=== PATIENT | female | born 1995 | race Caucasian/White ===

== ENCOUNTER → 2016-10-18 | Outpatient (REF) | payer OTHER | LOC: M LAB REF 10:59 | PROVIDERS: ATTEND Advanced Practice Midwife | DX: Z12.4 Encounter for screening for malignant neoplasm of cervix (principal) ==

== ENCOUNTER → 2017-10-19 | Outpatient (CLI) | payer OTHER ==
[2017-10-19 14:11] LABS: BASO % 0.2 % (0.0-1.0); EOS % 0.5 % (0.0-3.0); HEMOGLOBIN 12.9 g/dl (12.0-15.5); LYMPH # 2.1 10^3/uL (1.5-6.5); LYMPH % 36.1 % (24.0-44.0); MEAN CORPUSCULAR HEMOGLOBIN 29.4 pg (27.0-33.0); MEAN CORPUSCULAR HGB CONC 33.1 g/dl (32.0-36.5); MEAN CORPUSCULAR VOLUME 88.8 fl (80.0-96.0); MONO # 0.5 10^3/uL (0.0-0.8); MONO % 8.2 % (0.0-5.0); NEUTROPHILS # 3.1 10^3/uL (1.8-7.7); PLATELET COUNT, AUTOMATED 236 10^3/uL (150-450); RED BLOOD COUNT 4.39 10^6/uL (4.00-5.40); WHITE BLOOD COUNT 5.7 10^3/uL (4.0-10.0)
[2017-10-19 14:33] LABS: D-DIMER QUANT < 270.0 ng/ml (<500)
[2017-10-19 14:58] LABS: ALKALINE PHOSPHATASE 87 U/L (45-117); ALT/SGPT 20 U/L (12-78); AST/SGOT 15 U/L (7-37); BILIRUBIN,TOTAL 0.4 MG/DL (0.2-1.0); BLOOD UREA NITROGEN 11 MG/DL (7-18); CALCIUM LEVEL 9.1 MG/DL (8.5-10.1); CARBON DIOXIDE LEVEL 27 MEQ/L (21-32); CHLORIDE LEVEL 110 MEQ/L (98-107); CK-MB VALUE MASS 1.1 NG/ML (<3.6); CPK CREATINE PHOSPHOKINASE 92 U/L (26-192); CREATININE FOR GFR 0.69 MG/DL (0.55-1.30); GLUCOSE, FASTING 73 MG/DL (70-100); MB/CK RELATIVE INDEX 1.19 (< OR =4); POTASSIUM SERUM 4.2 MEQ/L (3.5-5.1); SODIUM LEVEL 142 MEQ/L (136-145); TROPONIN I < 0.02 NG/ML (< 0.10)
[2017-10-19 20:59] LABS: ALBUMIN/GLOBULIN RATIO 1.33 (1.00-1.93); ANION GAP 5 MEQ/L (8-16)
== END ==
LOC: M WUC 12:56
DX: R07.1 Chest pain on breathing (principal)
CPT/HCPCS: 82550

== ENCOUNTER → 2017-12-28 | Outpatient (REF) | payer OTHER | LOC: M LAB REF 17:07 | DX: Z01.419 Encounter for gynecological examination (general) (routine) without abnormal findings (principal) ==

== ENCOUNTER → 2018-05-17 | Outpatient (CLI) | payer OTHER ==
[2018-05-17 17:58] LABS: HCG, SERUM QUANTITATIVE 16248 MIU/ML
== END ==
LOC: M SMT 14:37
DX: O20.0 Threatened abortion (principal); Z3A.00 Weeks of gestation of pregnancy not specified
CPT/HCPCS: 84702

== ENCOUNTER → 2018-05-19 | Outpatient (CLI) | payer OTHER ==
[2018-05-19 16:26] LABS: HCG, SERUM QUANTITATIVE 13322 MIU/ML
== END ==
LOC: M LAB 15:06
DX: O20.0 Threatened abortion (principal); Z3A.00 Weeks of gestation of pregnancy not specified
CPT/HCPCS: 84702

== ENCOUNTER → 2018-06-05 | Outpatient (CLI) | payer OTHER ==
[2018-06-05 13:13] LABS: HCG, SERUM QUANTITATIVE 281 MIU/ML
== END ==
LOC: M LAB 12:19
DX: O02.1 Missed abortion (principal)
CPT/HCPCS: 84702

== ENCOUNTER → 2018-06-15 | Outpatient (CLI) | payer OTHER ==
[2018-06-15 17:21] LABS: HCG, SERUM QUANTITATIVE 92 MIU/ML
== END ==
LOC: M LAB 16:38
DX: O02.1 Missed abortion (principal)
CPT/HCPCS: 84702

== ENCOUNTER → 2018-07-04 | Outpatient (CLI) | payer OTHER ==
[2018-07-04 18:21] LABS: HCG, SERUM QUANTITATIVE 17 MIU/ML
== END ==
LOC: M LAB 17:26
DX: O02.1 Missed abortion (principal)
CPT/HCPCS: 84702

== ENCOUNTER 2018-11-13 06:05 | Day surgery (SDC) | payer OTHER ==
[~2018-11-13] VITALS: Ht 170.2 cm; Wt 64.9 kg
[~2018-11-13 06:05] MED LIST: CLIN1SOL TOP; FINA15GE TOP; FLON1SPR; NAPR-885 PO; PRENTAB55 PO; VITA500046 PO; VITATAB11 PO
[2018-11-13 06:47] LABS: URINE PREG TEST NEGATIVE (NEGATIVE)
[2018-11-13] MEDS ORDERED: LR 1,000 ML IV SCH (07:00)
[2018-11-13] MEDS ORDERED: dexameTHASONE 4 MG/ML 1ML VIAL (J1100) IV ONE (07:00)
[2018-11-13] MEDS ORDERED: LIDOCAINE 1% MDV 20ML VIAL SC PRN (07:00)
[2018-11-13] MEDS ORDERED: AMPICILLIN SOD/SULBACTAM SOD 3 GM in D5W MINI-BAG PLUS 100 ML IV ONE (07:00)
[2018-11-13] MEDS ORDERED: LIDOCAINE 2% W/ EPINEPHRINE 1.7 ML DENTAL INJ As Ordered ONE ×2 (07:07→08:21)
[2018-11-13] MEDS ORDERED: SCOPOLAMINE 1MG TRANSDERMAL PATCH As Ordered ONE (07:28)
[2018-11-13] MEDS ORDERED: SCOPOLAMINE 1MG TRANSDERMAL PATCH TOP ONE (07:45)
[2018-11-13] MEDS ORDERED: LIDOCAINE 2% INJ 100 MG/5 ML SDV (FOR ANES.) As Ordered ONE (07:57)
[2018-11-13] MEDS ORDERED: PROPOFOL 200 MG/20 ML VIAL As Ordered ONE (07:57)
[2018-11-13] MEDS ORDERED: MIDAZOLAM INJ 2 MG/2 ML VIAL (J2250) As Ordered ONE (07:57)
[2018-11-13] MEDS ORDERED: ROCURONIUM BROMIDE 50 MG/5 ML VIAL As Ordered ONE (07:57)
[2018-11-13] MEDS ORDERED: fentaNYL 250 MCG/5 ML INJECTION (J3010) As Ordered ONE (07:57)
[2018-11-13] MEDS ORDERED: ONDANSETRON 4MG/2ML VIAL (J2405) As Ordered ONE (07:57)
[2018-11-13] MEDS ORDERED: KETOROLAC 60 MG/2 ML VIAL (J1885) As Ordered ONE (08:03)
[2018-11-13] MEDS ORDERED: SUGAMMADEX SODIUM 500 MG/5 ML VIAL (BRIDION) As Ordered ONE (08:03)
[2018-11-13] MEDS ORDERED: PHENYLephrine HCL 500 MCG/5 ML (100MCG/ML) SYRINGE (J2370) As Ordered ONE (08:08)
[2018-11-13] MEDS ORDERED: fentaNYL 100 MCG/2 ML INJECTION (J3010) IV PRN (09:15)
[2018-11-13] MEDS ORDERED: NORCO, ANEXSIA 5/325MG TABLET (HYDROcodone/ACETAMINOPHEN) PO PRN (09:15)
[2018-11-13] MEDS ORDERED: NORCO, ANEXSIA 5/325MG TABLET (HYDROcodone/ACETAMINOPHEN) As Ordered ONE (10:43)
[2018-11-13 11:50] VITALS: BP 116/67
--- NOTE | 2018-11-14 10:34 | RO ---
DATE OF PROCEDURE: 11/13/2018 PREOPERATIVE DIAGNOSES: 1. History of failed office sedation. 2. Symptomatic and malposition impacted teeth number 16, 17 and 32. POSTOPERATIVE DIAGNOSES: Status post: 1. History of failed office sedation. 2. Symptomatic and malposition impacted teeth number 16, 17 and 32. PROCEDURE PERFORMED: Surgical extraction of teeth number 16, 17 and 32. SURGEON: Alejandro Hernandez DMD, MD ANESTHESIA: General endotracheal anesthesia via nasal ray. SPECIMEN: Teeth for gross only. INDICATIONS FOR SURGERY: Alice is a pleasant 23-year-old female who has a history of failed sedation in my office for extraction of her wisdom teeth. We discussed having the procedure done in an operating room setting under general anesthesia. All the risks, benefits and alternatives were explained to the patient. Complete history and physical and informed consent were reviewed and performed and are signed and are in the patient's chart. DESCRIPTION OF PROCEDURE: The patient presented to preop holding area. Any last minute questions were addressed. At that point, the history and physical and the consent were updated. She was given preoperative antibiotics and steroids in the IV access. At this point, the patient was taken back to the operating room. She was laid supine on the operating room table. Ulnar nerve protectors were placed. Noninvasive cardiac monitors were applied. At that point, she was induced and intubated with a nasal ray which was secured to the patient's forehead. She was then prepped and draped in the usual sterile fashion. Time-out procedure was performed to identify the patient, the procedure, and any other precautions. A moist throat pack was inserted in the patient's oropharynx followed by the administration of 2% lidocaine with 1:100,000 epinephrine for local infiltration and blocks. At this point, a full-thickness flap with a hockey stick extension was elevated in site #32 extending into the sulcus of tooth #31. The flap was reflected to expose the buccal and distal cortex. Surgitome was then used to remove buccal bone and a small amount of distal bone all the way down to the furcation of the tooth. The crown was sectioned in several segments and removed, then the roots were sectioned and delivered. Socket was curetted and irrigated. Inferior alveolar nerve was not noted and the lingual cortex was intact. Flap was then closed with #3-0 Chromic sutures. Attention was then given to tooth site #17 where a full-thickness flap was released with a hockey stick extension extending into the sulcus of tooth #18. Flap was fully reflected to expose the buccal cortex as well as a small amount of the distal cortex. Surgitome was used to remove distal and buccal bone in a trough fashion all the way down to the furcation of the tooth. The crown was then sectioned. Then the roots were also sectioned and delivered. At this point, the socket was curetted and irrigated. The alveolar nerve was not noted and lingual cortex was intact and the flap was closed with #3-0 Chromic sutures. Attention was then given to tooth #16 area where a full-thickness flap over the tuberosity extending into the sulcus of tooth #15. Flap was reflected fully. A small amount of buccal and distal bone were removed. The tooth was then luxated and delivered with ease. Socket was curetted and irrigated. No sinus exposure was noted and flap was closed with #3-0 Chromic sutures. At this point, the oral cavity was irrigated and suctioned, the throat pack was removed. The patient was awakened from general anesthesia and taken back to the recovery with no issues under my care and the anesthesiologist care. COMPLICATIONS: None to mention at time of surgery. ESTIMATED BLOOD LOSS: 20 mL. DRAINS: There were no drains placed.
== END 2018-11-13 11:50 | disposition home or self-care (01) ==
LOC: M SDC 06:05
PROVIDERS: ATTEND Dentist
DX: K01.1 Impacted teeth (principal); M26.30 Unspecified anomaly of tooth position of fully erupted tooth or teeth; Z79.899 Other long term (current) drug therapy
CPT/HCPCS: 41899; 84703; 88300; J1100; J1885; J2250; J2370; J2405; J3010

== ENCOUNTER → 2019-01-06 | Outpatient (REF) | payer OTHER | LOC: M LAB REF 12:54 | PROVIDERS: ATTEND Advanced Practice Midwife | DX: Z12.4 Encounter for screening for malignant neoplasm of cervix (principal) ==

== ENCOUNTER → 2019-03-27 | Outpatient (CLI) | payer OTHER | LOC: M LAB 09:48 | PROVIDERS: ATTEND Advanced Practice Midwife | DX: O02.1 Missed abortion (principal) ==

== ENCOUNTER → 2019-11-11 | Outpatient (REF) | payer OTHER | LOC: M PLALAB 09:08 | PROVIDERS: ATTEND Advanced Practice Midwife | DX: Z32.01 Encounter for pregnancy test, result positive (principal) ==

== ENCOUNTER → 2019-11-13 | Outpatient (REF) | payer OTHER | LOC: M PLALAB 09:02 | PROVIDERS: ATTEND Advanced Practice Midwife | DX: Z32.01 Encounter for pregnancy test, result positive (principal) ==

== ENCOUNTER → 2019-11-17 | Outpatient (REF) | payer OTHER ==
[2019-11-17 13:30] LABS: HEMATOCRIT 37.3 % (36.0-47.0); HEMOGLOBIN 12.4 g/dl (12.0-15.5); MEAN CORPUSCULAR HEMOGLOBIN 29.8 pg (27.0-33.0); MEAN CORPUSCULAR HGB CONC 33.2 g/dl (32.0-36.5); MEAN CORPUSCULAR VOLUME 89.7 fl (80.0-96.0); PLATELET COUNT, AUTOMATED 235 10^3/uL (150-450); RED BLOOD COUNT 4.16 10^6/uL (4.00-5.40); WHITE BLOOD COUNT 7.6 10^3/uL (4.0-10.0)
[2019-11-17 14:27] LABS: HEPATITIS B SURFACE ANTIGEN NEGATIVE (NEGATIVE); HEPATITIS C VIRUS ABY INDEX 0.1 INDEX (<0.8); HIV 1&2 SCREEN CENTAUR NEGATIVE (NEGATIVE); RUBELLA IgG QUALITATIVE IMMUNE (IMMUNE)
[2019-11-17 15:07] LABS: CHLAMYDIA DNA AMPLIFICATION NEGATIVE (NEGATIVE); GC DNA AMPLIFICATION NEGATIVE (NEGATIVE)
== END ==
LOC: M PLALAB 11:06
PROVIDERS: ATTEND Advanced Practice Midwife
DX: Z34.81 Encounter for supervision of other normal pregnancy, first trimester (principal)

== ENCOUNTER → 2020-02-19 | Outpatient (CLI) | payer OTHER ==
--- NOTE | 2020-04-09 15:41 | REP ---
OBSTETRIC SONOGRAPHY HISTORY: Supervision of for anatomy. Estimated date of delivery (SIMONA) 07/08/2020. This report was delayed due to a malware attack on this facility. OBSTETRIC SONOGRAPHIC FINDINGS: Scanning through the gravid uterus demonstrates a single living intrauterine gestation in a transverse lie. Placenta is anterior grade 0 without evidence of previa or abruption. Amniotic fluid is subjectively normal. heart rate is recorded at 140 beats per minute. Closed cervical length is 3.9 cm measured transabdominally. There is an echogenic focus in the left ventricle likely chordae tendineae. Facial profile is seen, but nose and lips are not visualized due to position. The following additional anatomic structures are identified and felt to be unremarkable: Intracranial anatomy, spine, left- sided stomach, kidneys and urinary bladder, four chamber heart with left ventricular outflow tract view, three-vessel cord, abdominal wall cord insertion, upper and lower extremities. BIOMETRY CHART BPD 47 mm 20 weeks 4 days Head Circumference 176 mm 20 weeks 1 day Abdominal Circumference 151 mm 20 weeks 3 days Femur Length 31 mm 20 weeks 0 days Humeral Length 30 mm 20 weeks 0 days Cerebellar Diameter 19 mm 20 weeks 1 day Estimated Weight 336 grams 55th Percentile IMPRESSION: Single living intrauterine gestation at 20 weeks 2 days by todays composite criteria. nose and lips and right ventricular outflow tract views less than optimally achieved. Transverse lie. MTDD
== END ==
LOC: M WHC 09:57
PROVIDERS: ATTEND Advanced Practice Midwife
DX: Z34.82 Encounter for supervision of other normal pregnancy, second trimester (principal)

== ENCOUNTER → 2020-03-18 | Outpatient (CLI) | payer OTHER ==
--- NOTE | 2020-03-30 16:54 | REP ---
OBSTETRIC SONOGRAPHY HISTORY: Follow-up anatomy. nose and lips and right ventricular outflow tract. FINDINGS: Scanning through the gravid uterus demonstrates a viable single intrauterine gestation in a cephalic lie. The placenta is anterior grade 1 without evidence of previa or abruption. Amniotic fluid is subjectively normal. Closed cervical length measured transabdominally is 3.4 cm. heart rate 143 beats per minute. right ventricular cardiac outflow tract view is achieved today and is felt to be unremarkable. The following anatomic structures are also identified today and felt to be unremarkable: Left-sided stomach, kidneys and bladder, face and lips, abdominal wall cord insertion, three-vessel cord. BIOMETRY CHART: BPD 59.9 mm 24 weeks 4 days Head Circumference 218 mm 24 weeks 0 day Abdominal Circumference 197 mm 24 weeks 3 days Femur Length 43 mm 24 weeks 0 days Humeral Length 39 mm 23 weeks 6 days Estimated Weight 668 g 49th percentile IMPRESSION: Viable single intrauterine gestation at 24 weeks 2 days by todays criteria. Estimated date of delivery (SIMONA) by todays sonographic criteria 07/06/2020. MTDD
== END ==
LOC: M WHC 13:16
PROVIDERS: ATTEND Advanced Practice Midwife
DX: Z34.82 Encounter for supervision of other normal pregnancy, second trimester (principal)

== ENCOUNTER → 2020-04-06 | Outpatient (CLI) | payer OTHER ==
[2020-04-06 13:34] LABS: HEMATOCRIT 34.1 % (36.0-47.0); HEMOGLOBIN 11.2 g/dl (12.0-15.5); MEAN CORPUSCULAR HGB CONC 32.8 g/dl (32.0-36.5); MEAN CORPUSCULAR VOLUME 94.5 fl (80.0-96.0); PLATELET COUNT, AUTOMATED 213 10^3/uL (150-450); RED BLOOD COUNT 3.61 10^6/uL (4.00-5.40); WHITE BLOOD COUNT 9.5 10^3/uL (4.0-10.0)
== END ==
LOC: M PLALAB 09:17
PROVIDERS: ATTEND Advanced Practice Midwife
DX: Z34.82 Encounter for supervision of other normal pregnancy, second trimester (principal); Z3A.00 Weeks of gestation of pregnancy not specified

== ENCOUNTER → 2020-05-10 | Outpatient (CLI) | payer OTHER ==
--- NOTE | 2020-05-10 12:55 | REP ---
INDICATION: GROWTH/DATING COMPARISON: 03/18/2020 TECHNIQUE: Transabdominal obstetrical ultrasound with color Doppler evaluation. FINDINGS: Examination demonstrates a single live intrauterine in cephalic presentation. motion is identified by technologist. Placenta is noted anterior and grade 2 without evidence for placenta previa or abruption. Amniotic fluid volume is normal. Cervix measures 4.4 cm in length and appears closed. No evidence for nuchal cord. Gestational age by LMP 31 weeks 4 days with SIMONA 07/08/2020. Gestational age by current measurements 31 weeks 3 days with SIMONA 07/09/2020. FHR equals 136 beats per minute. BPD: 7.8 cm 31 weeks 3 days HC: 30.0 cm 33 weeks 1 day AC: 28.9 cm 32 weeks 6 days FL: 5.8 cm 30 weeks 3 days HL: 5.1 cm 29 weeks 4 days HC/AC: 1.04 Estimated weight 1898 grams (55thpercentile). Amniotic fluid index: 11.3 cm (8.7-24.0) IMPRESSION: Single live advanced gestation in cephalic presentation demonstrating appropriate estimated weight and growth. <Electronically signed by Rd Villar > 05/10/20 1344
== END ==
LOC: M WHC 09:55
PROVIDERS: ATTEND Obstetrics & Gynecology
DX: Z34.03 Encounter for supervision of normal first pregnancy, third trimester (principal); Z3A.31 31 weeks gestation of pregnancy

== ENCOUNTER → 2020-06-14 | Outpatient (REF) | payer OTHER | LOC: M SFHCWAGY 13:16 | PROVIDERS: ATTEND Advanced Practice Midwife | DX: Z34.03 Encounter for supervision of normal first pregnancy, third trimester (principal); Z3A.00 Weeks of gestation of pregnancy not specified ==

== ENCOUNTER 2020-07-03 04:12 | Inpatient (IN) | payer OTHER ==
[~2020-07-03] VITALS: Ht 168.9 cm; Wt 71.0 kg
[2020-07-03 04:29] VITALS: BP 105/57
[2020-07-03 05:29] VITALS: BP 122/67
[2020-07-03] MEDS ORDERED: ONDANSETRON 4MG/2ML VIAL As Ordered ONE (05:32)
[2020-07-03 05:34] LABS: HEMATOCRIT 38.3 % (36.0-47.0); HEMOGLOBIN 12.9 g/dl (12.0-15.5); MEAN CORPUSCULAR HGB CONC 33.7 g/dl (32.0-36.5); MEAN CORPUSCULAR VOLUME 89.1 fl (80.0-96.0); PLATELET COUNT, AUTOMATED 220 10^3/uL (150-450); WHITE BLOOD COUNT 15.7 10^3/uL (4.0-10.0)
[2020-07-03] MEDS ORDERED: ONDANSETRON 4MG/2ML VIAL IV PRN (05:45)
[2020-07-03 06:48] VITALS: BP 104/61
[2020-07-03] MEDS ORDERED: OXYTOCIN 30 UNITS IN 0.9% NaCl 500ML IV BAG (J2590) As Ordered ONE ×2 (08:04→11:46)
[2020-07-03] MEDS: PRENATAL VITAMINS CHEWABLE TABLET PO SCH (09:00)
[2020-07-03] MEDS ORDERED: OXYTOCIN DRIP 30 UNITS in IV 1 EA IV SCH (09:06)
[2020-07-03] MEDS ORDERED: DOCUSATE SODIUM 100MG CAPSULE PO PRN (09:15)
[2020-07-03] MEDS ORDERED: IBUPROFEN 600MG TAB PO PRN (09:15)
[2020-07-03] MEDS ORDERED: RHOGAM 300 MCG (1500 IU) INJ (J2790) IM SCH (09:15)
[2020-07-03] MEDS ORDERED: ANUSOL HC CREAM 30GM TOP PRN (09:15)
[2020-07-03] MEDS ORDERED: ACETAMINOPHEN 500 MG TAB PO PRN (09:15)
[2020-07-03] MEDS ORDERED: MEASLES,MUMPS,RUBELLA VACCINE INJ (MMR-II) (90707) SC SCH (09:15)
[2020-07-03] MEDS ORDERED: ACETAMINOPHEN TAB 650MG DOSE (2X325MG) PO PRN (09:15)
[2020-07-03] MEDS ORDERED: METHYLERGONOVINE MALEATE 0.2 MG TAB PO PRN (09:15)
[2020-07-03 11:24] VITALS: BP 125/69
[2020-07-03] MEDS: BENZOCAINE 20% HEMORRHOIDAL OINTMENT 28GM TUBE TOP PRN (11:28)
[2020-07-03] MEDS ORDERED: LIDOCAINE 1% MDV 20ML VIAL SC ONE (12:00)
[2020-07-03] MEDS: IBUPROFEN 800 MG TAB PO PRN (16:34)
[2020-07-03 18:00] VITALS: BP 114/65
[2020-07-04] MEDS: IBUPROFEN 800 MG TAB PO PRN ×3 (00:07→22:05)
[2020-07-04 05:51] VITALS: BP 119/62
[2020-07-04] MEDS: BENZOCAINE 20% HEMORRHOIDAL OINTMENT 28GM TUBE TOP PRN (07:48)
[2020-07-04] MEDS: PRENATAL VITAMINS CHEWABLE TABLET PO SCH (07:49)
[2020-07-04 09:26] VITALS: BP 141/85
[2020-07-04 17:39] VITALS: BP 126/70
[2020-07-05 06:00] VITALS: BP 119/61
[2020-07-05] MEDS: IBUPROFEN 800 MG TAB PO PRN (08:35)
[2020-07-05] MEDS: PRENATAL VITAMINS CHEWABLE TABLET PO SCH (08:35)
[2020-07-05] MEDS ORDERED: IBUP80TA PO (09:01)
[2020-07-05] MEDS ORDERED: ACET-683 PO (09:01)
--- NOTE | 2020-07-05 14:32 | HPE ---
HISTORY AND PHYSICAL DATE: 07/03/2020 HISTORY OF PRESENT ILLNESS: Alice is a 25-year-old 1, para 0 at 39 and 2/7 weeks. EDC 07/08/2020 based on last menstrual period and confirmed by first trimester ultrasound. She presents to labor and delivery with complaint of uncomfortable contractions that started approximately 20:00 on 07/02/2020 and are now every 2-3 minutes. She denies vaginal bleeding, mucus fluid. The fetus has been active. Her care was initiated at [facility] in the first trimester. Her course has been uncomplicated. OBSTETRIC HISTORY: Primigravida. OBSTETRIC LABS: O+. Antibody screen negative. Syphilis negative. Gonorrhea and chlamydia negative. Hepatitis B surface antigen negative. Hepatitis C antibody negative. HIV negative. Rubella immune. Urine culture no growth. Gestational diabetic screening normal at 70 and her GBS is negative. PAST MEDICAL HISTORY: abnromal Pap smear. PAST SURGICAL HISTORY: Colposcopy. FAMILY HISTORY: Breast cancer, colon cancer, depression, melanoma, anxiety. SOCIAL HISTORY: Nonsmoker, denies alcohol and drug use. No history of any sexually transmitted infections. No history of abuse physical, sexual or emotional. She is . Father of the baby is at bedside and supportive. ALLERGIES: No known drug allergies. She has sensitivity to VINYL GLOVES. CURRENT MEDICATIONS: vitamin. OBJECTIVE: Complete vital signs have yet to be taken. Her blood pressure is 105/57. She is alert and oriented times 3. She does appear in distress. She is deep breathing and moaning through her contractions. heart rate is 130 with moderate variability, positive accelerations, negative decelerations. Contractions are every 2-3 minutes. Her abdomen is gravid. Cephalic presentation. Estimated weight 7 pounds. Sterile vaginal exam 4 cm dilated, 100% effaced, -2 station, mid-position, bulging bag of water, normal show. ASSESSMENT: 1. Intrauterine at 39 and 2/7 weeks. 2. heart rate category 1. 3. Active labor. PLAN: 1. Admit the patient to labor and delivery. 2. Out of bed ad alise. 3. Regular diet at this time. 4. I.V. saline lock. The patient desires to cope with her laobr physiologically. I did review risks, benefits and alternatives. She has been verbally consented for emergency surgery and blood products if they are necessary. I do anticipate continued labor progress and a normal spontaneous vaginal delivery.
--- NOTE | 2020-07-14 12:52 | DN ---
DELIVERY NOTE DATE OF DELIVERY: 07/03/2020 TIME OF : GENDER: Female APGARS: 9 and 9 ESTIMATED BLOOD LOSS: 250 mL COUNTS: Correct and verified. DESCRIPTION OF DELIVERY: Alice is a 25-year-old 2, para 1-0-1-1 now, who was admitted to labor and delivery in active labor. She coped with her labor physiologically. She reached complete dilation. Pushed to a normal spontaneous vaginal delivery of a live female infant in left occiput anterior (KAREL) position with restitution to left occiput transverse (LOT) position with a left compound hand. Shoulders delivered spontaneously and the corpus immediately followed. The female had her mouth and nares bulb suctioned and was placed on the maternal abdomen crying and active. Cord was clamped once pulsation ceased and cut by the father of the baby under my direction. Uterine hemostasis achieved with IV Pitocin rapid infusion and uterine fundal massage. Estimated blood loss 250 mL. [place] female weight 6 pounds 5 ounces. 9 and 9. Mom is going to breastfeed her daughter and the family have named her Divya. At the close of delivery lap counts, needle counts, and instrument counts were correct and verified.
== END 2020-07-05 12:30 | disposition home or self-care (01) | DRG 807 ==
LOC: M LDO 04:12 → M LDI 05:02 → M OBS 11:15
PROVIDERS: ADMIT Advanced Practice Midwife; ATTEND Advanced Practice Midwife
PROC: 10E0XZZ Delivery of Products of Conception, External Approach (ICD-10-PCS; principal; 2020-07-03)
DX: O80 Encounter for full-term uncomplicated delivery (principal); Z37.0 Single live birth; Z3A.39 39 weeks gestation of pregnancy

== ENCOUNTER → 2020-10-18 | Outpatient (REF) | payer OTHER ==
[~2020-10-18] MED LIST changes: +ACET-683 PO; +IBUP80TA PO
== END ==
LOC: M SFHCWAGY 13:32
PROVIDERS: ATTEND Advanced Practice Midwife
DX: Z12.4 Encounter for screening for malignant neoplasm of cervix (principal)

== ENCOUNTER → 2021-02-14 | Outpatient (REF) | LOC: M EMP 13:30 | PROVIDERS: ATTEND Family Medicine | DX: Z20.828 Contact with and (suspected) exposure to other viral communicable diseases (principal) ==

== ENCOUNTER 2022-06-04 22:55 | Emergency (ER) | payer OTHER ==
[~2022-06-04] VITALS: Ht 170.2 cm; Wt 65.5 kg
[2022-06-05] MEDS ORDERED: PYRI100L PO (00:03)
[2022-06-05 04:58] LABS: BASO % 0.1 % (0.0-1.0); HEMATOCRIT 32.6 % (36.0-47.0); HEMOGLOBIN 10.8 g/dl (12.0-15.5); LYMPH # 1.6 10^3/uL (1.5-5.0); LYMPH % 11.4 % (24.0-44.0); MEAN CORPUSCULAR HEMOGLOBIN 29.5 pg (27.0-33.0); MEAN CORPUSCULAR HGB CONC 33.1 g/dl (32.0-36.5); MEAN CORPUSCULAR VOLUME 89.1 fl (80.0-96.0); MONO # 0.6 10^3/uL (0.0-0.8); MONO % 4.2 % (2.0-8.0); NEUTROPHILS # 11.9 10^3/uL (1.5-8.5); NEUTROPHILS % 83.9 % (36.0-66.0); PLATELET COUNT, AUTOMATED 219 10^3/uL (150-450); RED BLOOD COUNT 3.66 10^6/uL (4.00-5.40); WHITE BLOOD COUNT 14.2 10^3/uL (4.0-10.0)
[2022-06-05 05:33] LABS: ALBUMIN 3.4 GM/DL (3.2-5.2); ALT/SGPT 22 U/L (12-78); BILIRUBIN,TOTAL 0.3 MG/DL (0.2-1.0); BLOOD UREA NITROGEN 9 MG/DL (7-18); CALCIUM LEVEL 8.8 MG/DL (8.5-10.1); CARBON DIOXIDE LEVEL 24 MEQ/L (21-32); CHLORIDE LEVEL 106 MEQ/L (98-107); CREATININE FOR GFR 0.45 MG/DL (0.55-1.30); GLOMERULAR FILTRATION RATE > 60.0 (>60); GLUCOSE, FASTING 96 MG/DL (70-100); MAGNESIUM LEVEL 1.9 MG/DL (1.8-2.4); POTASSIUM SERUM 3.7 MEQ/L (3.5-5.1); SODIUM LEVEL 136 MEQ/L (136-145); TOTAL PROTEIN 6.4 GM/DL (6.4-8.2)
[2022-06-05 13:02] VITALS: BP 119/60
== END 2022-06-05 13:07 | disposition home or self-care (01) ==
LOC: M ED 22:55
DX: O34.82 Maternal care for other abnormalities of pelvic organs, second trimester (principal); N83.202 Unspecified ovarian cyst, left side; D72.829 Elevated white blood cell count, unspecified; Z3A.17 17 weeks gestation of pregnancy; Z86.16 Personal history of COVID-19; Z91.048 Other nonmedicinal substance allergy status; Z79.810 Long term (current) use of selective estrogen receptor modulators (SERMs); Z79.899 Other long term (current) drug therapy

== ENCOUNTER → 2022-06-19 | Outpatient (CLI) | payer OTHER ==
[~2022-06-19] MED LIST changes: +PYRI100L PO
== END ==
LOC: M WHC 14:00
PROVIDERS: ATTEND Advanced Practice Midwife
DX: Z36.3 Encounter for antenatal screening for malformations (principal); Z3A.20 20 weeks gestation of pregnancy

== ENCOUNTER → 2022-07-14 | Outpatient (CLI) | payer OTHER | LOC: M WHC 08:53 | PROVIDERS: ATTEND Advanced Practice Midwife | DX: Z36.2 Encounter for other antenatal screening follow-up (principal); Z3A.23 23 weeks gestation of pregnancy ==

== ENCOUNTER → 2022-07-20 | Outpatient (CLI) | payer OTHER ==
[2022-07-20 08:12] LABS: GLUCOSE CHALLENGE TEST 1 HOUR 93 MG/DL (LESS THAN 140)
[2022-07-20 08:42] LABS: HIV 1&2 SCREEN CENTAUR NEGATIVE (NEGATIVE)
[2022-07-20 08:50] LABS: HEPATITIS C VIRUS ABY INDEX 0.1 INDEX (<0.8)
[2022-07-20 09:40] LABS: GC DNA AMPLIFICATION NEGATIVE (NEGATIVE)
== END ==
LOC: M LAB 06:17
PROVIDERS: ATTEND Advanced Practice Midwife
DX: Z34.92 Encounter for supervision of normal pregnancy, unspecified, second trimester (principal)

== ENCOUNTER → 2022-08-24 | Outpatient (CLI) | payer BC | LOC: M RAD 11:04 | PROVIDERS: ATTEND Advanced Practice Midwife | DX: O36.5990 Maternal care for other known or suspected poor fetal growth, unspecified trimester, not applicable or unspecified (principal); Z3A.29 29 weeks gestation of pregnancy ==

== ENCOUNTER → 2022-08-29 | Outpatient (CLI) | payer BC | LOC: M PLALAB 15:56 | PROVIDERS: ATTEND Advanced Practice Midwife | DX: O36.5920 Maternal care for other known or suspected poor fetal growth, second trimester, not applicable or unspecified (principal); Z3A.00 Weeks of gestation of pregnancy not specified ==

== ENCOUNTER → 2022-09-14 | Outpatient (CLI) | payer BC | LOC: M WHC 12:36 | PROVIDERS: ATTEND Advanced Practice Midwife | DX: O36.5920 Maternal care for other known or suspected poor fetal growth, second trimester, not applicable or unspecified (principal) ==

== ENCOUNTER → 2022-10-05 | Outpatient (CLI) | payer BC | LOC: M WHC 16:01 | PROVIDERS: ATTEND Advanced Practice Midwife | DX: O36.5990 Maternal care for other known or suspected poor fetal growth, unspecified trimester, not applicable or unspecified (principal) ==

== ENCOUNTER → 2022-10-09 | Outpatient (REF) | payer BC | LOC: M SFHCWAGY 17:46 | PROVIDERS: ATTEND Advanced Practice Midwife | DX: Z36.85 Encounter for antenatal screening for Streptococcus B (principal); Z3A.36 36 weeks gestation of pregnancy ==

== ENCOUNTER → 2022-10-13 | Outpatient (CLI) | payer BC | LOC: M WHC 12:48 | PROVIDERS: ATTEND Advanced Practice Midwife | DX: O36.5990 Maternal care for other known or suspected poor fetal growth, unspecified trimester, not applicable or unspecified (principal); Z3A.36 36 weeks gestation of pregnancy ==

== ENCOUNTER → 2022-10-20 | Outpatient (CLI) | payer BC | LOC: M WHC 14:27 | PROVIDERS: ATTEND Advanced Practice Midwife | DX: O36.5990 Maternal care for other known or suspected poor fetal growth, unspecified trimester, not applicable or unspecified (principal); Z3A.36 36 weeks gestation of pregnancy ==

== ENCOUNTER → 2022-10-27 | Outpatient (CLI) | payer BC | LOC: M WHC 12:17 | PROVIDERS: ATTEND Advanced Practice Midwife | DX: O36.5990 Maternal care for other known or suspected poor fetal growth, unspecified trimester, not applicable or unspecified (principal); Z3A.36 36 weeks gestation of pregnancy ==

== ENCOUNTER → 2022-10-31 | Outpatient (CLI) | payer BC | LOC: M WHC 07:13 | PROVIDERS: ATTEND Advanced Practice Midwife | DX: O36.5990 Maternal care for other known or suspected poor fetal growth, unspecified trimester, not applicable or unspecified (principal); Z3A.39 39 weeks gestation of pregnancy ==

== ENCOUNTER → 2022-11-06 | Outpatient (CLI) | payer BC | LOC: M WHC 12:55 | PROVIDERS: ATTEND Advanced Practice Midwife | DX: O36.5990 Maternal care for other known or suspected poor fetal growth, unspecified trimester, not applicable or unspecified (principal) ==

== ENCOUNTER 2022-11-14 14:39 | Inpatient (IN) | payer BC ==
[~2022-11-14] VITALS: Ht 170.2 cm; Wt 76.8 kg
[2022-11-14] MEDS ORDERED: OMEP10CASR PO (14:59)
[2022-11-14] MEDS ORDERED: HOME MED LIST COMPLETE! XX SCH (15:00)
[2022-11-14] MEDS ORDERED: TRANEXAMIC ACID INJection 1,000 MG in NS 100 ML IV PRN (15:10)
[2022-11-14] MEDS ORDERED: OXYTOCIN INJ 10UNITS/ML 1ML VIAL IM PRN (15:10)
[2022-11-14] MEDS ORDERED: OXYTOCIN DRIP 30 UNITS in IV 1 EA IV PRN (15:10)
[2022-11-14] MEDS ORDERED: METHYLERGONOVINE MALEATE 0.2MG/ML 1ML VIAL IM PRN (15:10)
[2022-11-14] MEDS ORDERED: LIDOCAINE 1% MDV 20ML VIAL INFIL PRN (15:10)
[2022-11-14] MEDS ORDERED: ONDANSETRON 4MG 2ML VIAL IV ONE (15:20)
[2022-11-14 15:55] LABS: HEMATOCRIT 32.7 % (36.0-47.0); HEMOGLOBIN 11.1 g/dl (12.0-15.5); MEAN CORPUSCULAR HEMOGLOBIN 29.5 pg (27.0-33.0); MEAN CORPUSCULAR HGB CONC 33.9 g/dl (32.0-36.5); PLATELET COUNT, AUTOMATED 235 10^3/uL (150-450); RED BLOOD COUNT 3.76 10^6/uL (4.00-5.40); WHITE BLOOD COUNT 15.6 10^3/uL (4.0-10.0)
[2022-11-14 15:56] VITALS: BP 129/59
[2022-11-14 16:24] VITALS: BP 132/80
[2022-11-14 16:39] VITALS: BP 125/76
[2022-11-14] MEDS ORDERED: RHOGAM 300MCG (1500IU) INJ IM SCH (16:45)
[2022-11-14] MEDS ORDERED: DOCUSATE SODIUM 100MG CAPSULE PO PRN (16:45)
[2022-11-14] MEDS ORDERED: IBUPROFEN 600MG TAB PO PRN (16:45)
[2022-11-14] MEDS ORDERED: METHYLERGONOVINE MALEATE 0.2 MG TAB PO PRN (16:45)
[2022-11-14] MEDS ORDERED: DIBUCAINE 1% OINTMENT 30GM TOP PRN (16:45)
[2022-11-14 16:54] VITALS: BP 121/69
[2022-11-14] MEDS: IBUPROFEN 800 MG TAB PO PRN (16:59)
[2022-11-14 17:09] VITALS: BP 115/66
[2022-11-14] MEDS: ACETAMINOPHEN 500 MG TAB PO PRN (23:49)
[2022-11-15] MEDS: IBUPROFEN 800 MG TAB PO PRN ×3 (02:21→20:18)
[2022-11-15 06:00] VITALS: BP 98/57
[2022-11-15] MEDS: ACETAMINOPHEN 500 MG TAB PO PRN (06:09)
[2022-11-15] MEDS: PRENATAL VITAMINS CHEWABLE TABLET PO SCH (09:00)
[2022-11-15] MEDS: ACETAMINOPHEN TAB 650MG DOSE (2X325MG) PO PRN (13:11)
[2022-11-15 18:00] VITALS: BP 102/65
[2022-11-16] MEDS: ACETAMINOPHEN TAB 650MG DOSE (2X325MG) PO PRN ×2 (00:21→05:08)
[2022-11-16 06:00] VITALS: BP 100/58
[2022-11-16] MEDS ORDERED: IBUP80TA PO (07:20)
[2022-11-16 07:45] VITALS: BP 100/58
[2022-11-16] MEDS ORDERED: MEASLES,MUMPS,RUBELLA VACCINE INJ (MMR-II) SC.IMMUN ONE (09:00)
[2022-11-16] MEDS: PRENATAL VITAMINS CHEWABLE TABLET PO SCH (09:00)
== END 2022-11-16 11:47 | disposition home or self-care (01) | DRG 560 ==
LOC: M LDO 14:39 → M LDI 14:56 → M OBS 19:52
PROVIDERS: ADMIT Advanced Practice Midwife; ATTEND Advanced Practice Midwife
PROC: 10E0XZZ Delivery of Products of Conception, External Approach (ICD-10-PCS; principal; 2022-11-14)
DX: O48.0 Post-term pregnancy (principal); Z3A.41 41 weeks gestation of pregnancy; Z37.0 Single live birth

== ENCOUNTER → 2023-01-15 | Outpatient (CLI) | payer BC ==
[~2023-01-15] MED LIST changes: +OMEP10CASR PO
== END ==
LOC: M RAD 06:36
PROVIDERS: ATTEND Advanced Practice Midwife
DX: R60.0 Localized edema (principal); M79.604 Pain in right leg

== ENCOUNTER → 2023-02-15 | Outpatient (REF) | payer BC ==
[2023-02-15 12:10] LABS: C REACTIVE PROTEIN QUANTITATIV < 0.40 MG/DL (<1.0); RHEUMATOID FACTOR QUANT < 3.5 IU/ML (<14)
[2023-02-16 17:09] LABS: ALDOLASE 2.9 U/L (3.3-10.3); ANTINUCLEAR ANTIBODIES DIRECT Negative (Negative)
== END ==
LOC: M LAB REF 11:19
PROVIDERS: ATTEND Family Medicine
DX: R53.83 Other fatigue (principal); M25.50 Pain in unspecified joint

== ENCOUNTER → 2023-05-31 | Outpatient (CLI) | payer BC | LOC: M RAD 09:46 | PROVIDERS: ATTEND Family Medicine | DX: R80.9 Proteinuria, unspecified (principal) ==

== ENCOUNTER → 2023-06-22 | Outpatient (REF) | payer BC ==
[2023-06-22 12:20] LABS: INR 1.07; PROTHROMBIN TIME 13.6 SECONDS (12.5-14.5)
[2023-06-22 12:21] LABS: PARTIAL THROMBOPLASTIN TIME 29.7 SECONDS (24.8-34.2)
[2023-06-22 12:23] LABS: D-DIMER QUANT 0.39 ug/mL (<0.5)
[2023-06-22 12:26] LABS: C REACTIVE PROTEIN QUANTITATIV < 0.40 MG/DL (<1.0)
[2023-06-22 12:39] LABS: HCG, SERUM QUALITATIVE NEGATIVE (NEGATIVE)
== END ==
LOC: M LAB REF 11:40
PROVIDERS: ATTEND Family Medicine
DX: R22.1 Localized swelling, mass and lump, neck (principal); Z82.49 Family history of ischemic heart disease and other diseases of the circulatory system

== ENCOUNTER → 2023-07-02 | Outpatient (CLI) | payer BC ==
[~2023-07-02] MED LIST changes: +E-Z-GAS II EFFERVESCENT PACKET (SODIUM BICARB./CITRIC ACID/SIMETHICONE) As Ordered ONE; +E-Z-HD 98% w/w 340GM SUSP BTL As Ordered ONE; +E-Z-PAQUE 96% w/w SUSP 176GM BTL As Ordered ONE
== END ==
LOC: M RAD 09:39
PROVIDERS: ATTEND Family Medicine
DX: K21.9 Gastro-esophageal reflux disease without esophagitis (principal)

== ENCOUNTER 2023-08-09 08:26 | Day surgery (SDC) | payer BC ==
[~2023-08-09] VITALS: Ht 168.9 cm; Wt 66.0 kg
[~2023-08-09 08:26] MED LIST changes: -E-Z-GAS II EFFERVESCENT PACKET (SODIUM BICARB./CITRIC ACID/SIMETHICONE) As Ordered ONE; -E-Z-HD 98% w/w 340GM SUSP BTL As Ordered ONE; -E-Z-PAQUE 96% w/w SUSP 176GM BTL As Ordered ONE
[2023-08-09] MEDS ORDERED: ERYT5OIN25 OD (08:34)
[2023-08-09 09:03] LABS: BASO % 0.1 % (0.0-1.0); HEMATOCRIT 35.7 % (36.0-47.0); HEMOGLOBIN 11.7 g/dl (12.0-15.5); LYMPH # 0.6 10^3/uL (1.5-5.0); LYMPH % 4.5 % (24.0-44.0); MEAN CORPUSCULAR HEMOGLOBIN 28.6 pg (27.0-33.0); MEAN CORPUSCULAR HGB CONC 32.8 g/dl (32.0-36.5); MEAN CORPUSCULAR VOLUME 87.3 fl (80.0-96.0); MONO # 0.3 10^3/uL (0.0-0.8); MONO % 2.3 % (2.0-8.0); NEUTROPHILS # 13.2 10^3/uL (1.5-8.5); NEUTROPHILS % 92.9 % (36.0-66.0); PLATELET COUNT, AUTOMATED 294 10^3/uL (150-450); RED BLOOD COUNT 4.09 10^6/uL (4.00-5.40); WHITE BLOOD COUNT 14.3 10^3/uL (4.0-10.0)
[2023-08-09 09:14] LABS: INR 0.94; PROTHROMBIN TIME 12.3 SECONDS (12.5-14.5)
[2023-08-09 09:15] LABS: PARTIAL THROMBOPLASTIN TIME 27.2 SECONDS (24.8-34.2)
[2023-08-09 09:34] LABS: LIPASE 24 U/L (12-53)
[2023-08-09 09:35] LABS: AMYLASE 68 U/L (30-118)
[2023-08-09 09:36] LABS: ALBUMIN 3.8 G/DL (3.2-5.2); ALKALINE PHOSPHATASE 90 U/L (46-116); ALT/SGPT 15 U/L (7.0-40); AST/SGOT 14 U/L (<34); BILIRUBIN,DIRECT 0.2 MG/DL (<0.4); BILIRUBIN,TOTAL 0.5 MG/DL (0.3-1.2); BLOOD UREA NITROGEN 10 MG/DL (9-23); CARBON DIOXIDE LEVEL 25 MMOL/L (20-31); CHLORIDE LEVEL 109 MMOL/L (98-107); CREATININE FOR GFR 0.63 MG/DL (0.55-1.30); GLOMERULAR FILTRATION RATE > 60.0 (>60); GLUCOSE, FASTING 107 MG/DL (60-100); POTASSIUM SERUM 3.6 MMOL/L (3.5-5.1); SODIUM LEVEL 140 MMOL/L (136-145); TOTAL PROTEIN 6.6 G/DL (5.7-8.2)
[2023-08-09 09:38] LABS: HCG, SERUM QUALITATIVE NEGATIVE (NEGATIVE)
[2023-08-09] MEDS ORDERED: ISOVUE-370 76% 100ML VIAL As Ordered ONE (11:41)
[2023-08-09] MEDS: KETOROLAC 30 MG/ML 1ML VIAL IV ONE (11:47)
[2023-08-09] MEDS: NS 1,000 ML IV ONE (11:47)
[2023-08-09] MEDS: ONDANSETRON 4MG 2ML VIAL IV ONE (11:47)
[2023-08-09] MEDS ORDERED: OMEP-173 PO (12:58)
[2023-08-09] MEDS ORDERED: ACET325C5 PO (12:59)
[2023-08-09] MEDS ORDERED: PEPT262S PO (12:59)
[2023-08-09] MEDS ORDERED: HOME MED LIST COMPLETE! XX SCH (13:00)
[2023-08-09] MEDS: LR 1,000 ML IV SCH ×2 (13:17→21:15)
[2023-08-09] MEDS: PIPERACILLIN/TAZOBACTAM SOD 3.375 GM in D5W MINI-BAG PLUS 50 ML IV ONE (13:17)
[2023-08-09] MEDS ORDERED: fentaNYL 100 MCG/2 ML INJECTION As Ordered ONE (19:39)
[2023-08-09] MEDS ORDERED: MIDAZOLAM INJ 2MG/2ML VIAL As Ordered ONE (19:39)
[2023-08-09] MEDS ORDERED: ROCURONIUM BROMIDE 50MG/5ML VIAL As Ordered ONE (19:40)
[2023-08-09] MEDS ORDERED: propofoL 200 MG/20 ML VIAL As Ordered ONE (19:40)
[2023-08-09] MEDS ORDERED: ONDANSETRON 4MG 2ML VIAL As Ordered ONE (19:40)
[2023-08-09] MEDS ORDERED: LIDOCAINE 2% 100MG/5ML SDV (FOR ANES.) As Ordered ONE (19:40)
[2023-08-09] MEDS: SCOPOLAMINE 1MG TRANSDERMAL PATCH TOP ONE (19:45)
[2023-08-09] MEDS ORDERED: ACETAMINOPHEN 1000MG 100ML IV BAG As Ordered ONE (19:52)
[2023-08-09] MEDS ORDERED: SCOPOLAMINE 1MG TRANSDERMAL PATCH As Ordered ONE (19:53)
[2023-08-09] MEDS ORDERED: KETOROLAC 60MG 2ML VIAL As Ordered ONE (19:54)
[2023-08-09] MEDS ORDERED: ZOSYN 3.375GM VIAL As Ordered ONE (19:56)
[2023-08-09] MEDS: PIPERACILLIN/TAZOBACTAM SOD 3.375 GM in D5W MINI-BAG PLUS 50 ML IV SCH (20:43)
[2023-08-09] MEDS ORDERED: SUGAMMADEX SODIUM 500 MG/5 ML VIAL (BRIDION) As Ordered ONE (20:51)
[2023-08-09] MEDS: LIDOCAINE 1% SDV 30ML VIAL As Ordered ONE (21:06)
[2023-08-09] MEDS ORDERED: oxyCODONE 5MG TAB PO PRN (21:15)
[2023-08-09] MEDS ORDERED: fentaNYL 100 MCG/2 ML INJECTION IV PRN (21:15)
[2023-08-09] MEDS ORDERED: ONDANSETRON 4MG 2ML VIAL IV PRN (21:15)
[2023-08-09] MEDS ORDERED: ACETAMINOPHEN TAB 650MG DOSE (2X325MG) PO PRN (21:25)
[2023-08-09 22:07] VITALS: BP 106/59; TEMP 97.9
[2023-08-09 22:55] VITALS: BP 107/60; TEMP 97.7
[2023-08-09 23:31] VITALS: BP 102/54; TEMP 97.9
[2023-08-10 00:34] VITALS: BP 102/56; TEMP 97.9
[2023-08-10 01:36] VITALS: BP 91/49; TEMP 97.9; O2SAT 97
[2023-08-10 02:44] VITALS: BP 94/54; TEMP 97.9; O2SAT 97
[2023-08-10] MEDS: PERCOCET 5MG/325MG TAB PO PRN (02:49)
[2023-08-10 03:37] VITALS: BP 95/48; TEMP 97.9; O2SAT 98
[2023-08-10 07:00] VITALS: BP 94/49; TEMP 97.9; O2SAT 97
[2023-08-10 08:00] VITALS: BP 96/51; TEMP 98.1; O2SAT 96
[2023-08-10] MEDS: KETOROLAC 30 MG/ML 1ML VIAL IV PRN (08:46)
[2023-08-10] MEDS ORDERED: PERCOCET PO (09:47)
== END 2023-08-10 11:17 | disposition home or self-care (01) ==
LOC: M ED 08:26 → M SDC 08:27 → M MSPAV 22:00 → M SDC 08-10 11:17
PROVIDERS: ATTEND Surgery
DX: K35.30 Acute appendicitis with localized peritonitis, without perforation or gangrene (principal); K21.9 Gastro-esophageal reflux disease without esophagitis; R51.9 Headache, unspecified; Z79.899 Other long term (current) drug therapy; Z88.8 Allergy status to other drugs, medicaments and biological substances
CPT/HCPCS: 44970; 74177; 80048; 80076; 81001; 82150; 83605; 83690; 84703; 85025; 85610; 85730; 87635; 88304; 96361; 96365; 96375; 96376; 99284; J0131; J0665; J1100; J1885; J2250; J2405; J2543; J3010; Q9967

== ENCOUNTER → 2023-09-20 | Outpatient (CLI) | payer BC ==
[~2023-09-20] MED LIST changes: +ACET325C5 PO; +ERYT5OIN25 OD; +OMEP-173 PO; +PEPT262S PO; +PERCOCET PO; +PROHANCE 279.3MG/ML 15ML VIAL As Ordered ONE
== END ==
LOC: M RAD 08:54
PROVIDERS: ATTEND Surgery Vascular Surgery
DX: I87.1 Compression of vein (principal)

== ENCOUNTER → 2023-11-19 | Outpatient (CLI) | payer BC ==
[~2023-11-19] MED LIST changes: -PROHANCE 279.3MG/ML 15ML VIAL As Ordered ONE
== END ==
LOC: M LAB 15:22
PROVIDERS: ATTEND Nurse Practitioner
DX: K21.9 Gastro-esophageal reflux disease without esophagitis (principal)

== ENCOUNTER → 2024-01-28 | Outpatient (CLI) | payer BC ==
[2024-01-28 17:38] LABS: HEMATOCRIT 35.5 % (36.0-47.0); HEMOGLOBIN 11.6 g/dl (12.0-15.5); MEAN CORPUSCULAR HEMOGLOBIN 28.2 pg (27.0-33.0); MEAN CORPUSCULAR HGB CONC 32.7 g/dl (32.0-36.5); MEAN CORPUSCULAR VOLUME 86.2 fl (80.0-96.0); PLATELET COUNT, AUTOMATED 286 10^3/uL (150-450); RED BLOOD COUNT 4.12 10^6/uL (4.00-5.40); WHITE BLOOD COUNT 6.2 10^3/uL (4.0-10.0)
[2024-01-28 18:02] LABS: BLOOD UREA NITROGEN 13 MG/DL (9-23); CARBON DIOXIDE LEVEL 26 MMOL/L (20-31); CHLORIDE LEVEL 108 MMOL/L (98-107); CREATININE FOR GFR 0.68 MG/DL (0.55-1.30); GLOMERULAR FILTRATION RATE > 60.0 (>60); GLUCOSE, FASTING 83 MG/DL (60-100); POTASSIUM SERUM 4.1 MMOL/L (3.5-5.1); SODIUM LEVEL 139 MMOL/L (136-145)
[2024-01-28 18:04] LABS: INR 0.99; PARTIAL THROMBOPLASTIN TIME 27.5 SECONDS (24.8-34.2); PROTHROMBIN TIME 12.8 SECONDS (12.5-14.5)
== END ==
LOC: M LAB 17:01
PROVIDERS: ATTEND Physician Assistant
DX: Z01.818 Encounter for other preprocedural examination (principal); D69.8 Other specified hemorrhagic conditions

== ENCOUNTER → 2024-09-02 | Outpatient (CLI) | payer BC | LOC: M RAD 08:59 | PROVIDERS: ATTEND Family Medicine | DX: D48.5 Neoplasm of uncertain behavior of skin (principal) ==

== ENCOUNTER → 2024-09-02 | Outpatient (CLI) | payer BC ==
[2024-09-02 11:22] LABS: BASO % 0.6 % (0.0-1.0); EOS % 0.2 % (0.0-3.0); HEMATOCRIT 35.9 % (36.0-47.0); HEMOGLOBIN 11.4 g/dl (12.0-15.5); LYMPH # 1.4 10^3/uL (1.5-5.0); LYMPH % 27.6 % (24.0-44.0); MEAN CORPUSCULAR HEMOGLOBIN 28.2 pg (27.0-33.0); MEAN CORPUSCULAR HGB CONC 31.8 g/dl (32.0-36.5); MEAN CORPUSCULAR VOLUME 88.9 fl (80.0-96.0); MONO # 0.5 10^3/uL (0.0-0.8); MONO % 10.7 % (2.0-8.0); NEUTROPHILS # 3.1 10^3/uL (1.5-8.5); NEUTROPHILS % 60.7 % (36.0-66.0); PLATELET COUNT, AUTOMATED 246 10^3/uL (150-450); RED BLOOD COUNT 4.04 10^6/uL (4.00-5.40); WHITE BLOOD COUNT 5.1 10^3/uL (4.0-10.0)
[2024-09-02 12:00] LABS: ALBUMIN 3.3 G/DL (3.2-5.2); ALKALINE PHOSPHATASE 71 U/L (35-104); ALT/SGPT 11 U/L (7.0-40); AST/SGOT 11 U/L (<34); BILIRUBIN,TOTAL 0.3 MG/DL (0.3-1.2); BLOOD UREA NITROGEN 9 MG/DL (9-23); CALCIUM LEVEL 9.1 MG/DL (8.5-10.1); CARBON DIOXIDE LEVEL 27 MMOL/L (20-31); CHLORIDE LEVEL 105 MMOL/L (98-107); CREATININE FOR GFR 0.65 MG/DL (0.55-1.30); GLOMERULAR FILTRATION RATE > 60.0 (>60); GLUCOSE, FASTING 78 MG/DL (60-100); POTASSIUM SERUM 4.4 MMOL/L (3.5-5.1); SODIUM LEVEL 141 MMOL/L (136-145); TOTAL PROTEIN 6.3 G/DL (5.7-8.2)
[2024-09-02 12:02] LABS: THYROID STIMULATING HORMONE 1.259 uIU/ML (0.55-4.78)
== END ==
LOC: M LAB 09:06
PROVIDERS: ATTEND Family Medicine
DX: K21.9 Gastro-esophageal reflux disease without esophagitis (principal)

== ENCOUNTER → 2024-10-21 | Outpatient (CLI) | payer BC ==
[2024-10-21 07:16] LABS: HEMATOCRIT 36.8 % (36.0-47.0); HEMOGLOBIN 12.2 g/dl (12.0-15.5); MEAN CORPUSCULAR HGB CONC 33.2 g/dl (32.0-36.5); MEAN CORPUSCULAR VOLUME 87.4 fl (80.0-96.0); PLATELET COUNT, AUTOMATED 263 10^3/uL (150-450); RED BLOOD COUNT 4.21 10^6/uL (4.00-5.40); WHITE BLOOD COUNT 6.4 10^3/uL (4.0-10.0)
[2024-10-21 07:36] LABS: INR 0.9; PARTIAL THROMBOPLASTIN TIME 29.5 SECONDS (24.8-34.2); PROTHROMBIN TIME 12.5 SECONDS (12.5-14.5)
[2024-10-21 07:38] LABS: BLOOD UREA NITROGEN 10 MG/DL (9-23); CALCIUM LEVEL 8.8 MG/DL (8.5-10.1); CARBON DIOXIDE LEVEL 28 MMOL/L (20-31); CHLORIDE LEVEL 106 MMOL/L (98-107); CREATININE FOR GFR 0.71 MG/DL (0.55-1.30); GLOMERULAR FILTRATION RATE > 60.0 (>60); GLUCOSE, FASTING 88 MG/DL (60-100); POTASSIUM SERUM 4.2 MMOL/L (3.5-5.1); SODIUM LEVEL 140 MMOL/L (136-145)
== END ==
LOC: M LAB 06:29
PROVIDERS: ATTEND Physician Assistant
DX: Z01.818 Encounter for other preprocedural examination (principal); D69.8 Other specified hemorrhagic conditions

== ENCOUNTER → 2025-02-02 | Outpatient (REF) | payer BC | LOC: M SFHCWAGY 10:46 | PROVIDERS: ATTEND Advanced Practice Midwife | DX: Z12.4 Encounter for screening for malignant neoplasm of cervix (principal) ==

== ENCOUNTER → 2025-04-02 | Outpatient (CLI) | payer BC | LOC: M RAD 15:53 | PROVIDERS: ATTEND Advanced Practice Midwife | DX: R10.2 Pelvic and perineal pain (principal) ==